=== PATIENT | female | born 1950 | race Caucasian/White ===

== ENCOUNTER → 2016-06-07 | Outpatient (CLI) | payer MEDICARE | LOC: WI 09:58 | PROVIDERS: ATTEND Family Medicine | DX: Z78.0 Asymptomatic menopausal state (principal); M85.88 Other specified disorders of bone density and structure, other site | CPT/HCPCS: 77080 ==

== ENCOUNTER → 2016-08-15 | Outpatient (CLI) | payer MEDICARE ==
--- NOTE | 2016-08-16 12:51 | RADIOLOGY REPORT (SQ) ---
EXAM DESCRIPTION: MRI LT LOWER JOINT WITHOUT COMPLETED DATE/TIME: 08/15/2016 10:02 pm REASON FOR STUDY: PAIN IN LEFT KNEE M25.562 PAIN IN LEFT KNEE COMPARISON: None. TECHNIQUE: Leftknee images acquired and stored on PACS. Multiplanar images include fat sensitive se quences as T1, water sensitive sequences as FST2 or STIR, cartilage sensitive sequences as FSPD, and gradient echo sequences. LIMITATIONS: None. FINDINGS: JOINT AND BURSAE: Small joint effusion. No popliteal cyst. BONE CORTEX AND MARROW: No alteration of signal to suggest marrow replacement. No worrisome bone lesi ons. No occult fracture. ACL: Intact. No degeneration or ganglion cyst. PCL: Intact. MCL: Intact. No periligamentous edema or fluid. LCL: Periligamentous edema. There is partial tear at the insertion of the popliteus tendon along the lateral femoral condyle. MEDIAL MENISCUS: No tears. No abnormal signal. LATERAL MENISCUS: No tears. No abnormal signal. MEDIAL COMPARTMENT: Cartilage preserved. No bone bruises or reactive marrow edema. No osteophytes. LATERAL COMPARTMENT: Cartilage preserved. No bone bruises or reactive marrow edema. No osteophytes. PATELLA: Severe chondromalacia of the patella with extensive subchondral cyst formation of the latera l the set. Extensive loss of trochlear cartilage particularly laterally where there are subchondral cysts and large osteophytes. Retinacular intact. EXTENSOR MECHANISM: Intact. Quadriceps and patella tendons normal. SOFT TISSUES: Adjacent muscles and subcutaneous tissues normal. Normal flow void in popliteal artery and vein. OTHER: No other significant finding. 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 Small joint effusion. 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 TECHNICAL DOCUMENTATION: JOB ID: [id number] [employer]- All Rights Reserved
== END ==
LOC: RAD 20:30
PROVIDERS: ATTEND Orthopaedic Surgery
DX: M25.562 Pain in left knee (principal); M22.42 Chondromalacia patellae, left knee

== ENCOUNTER 2018-07-26 06:36 | Day surgery (SDC) | payer MEDICARE ==
[~2018-07-26 06:36] MED LIST: DORZOLAMIDE HCL 2%/TIMOLOL MALEAT 0.5% OPH SOLN 10 ML OD PRN; KETOROLAC TROMETHAMINE 0.45% 4 DROP/0.4 ML DROPERETTE OD PRN; TETRACAINE HCL 0.5% OPH SOLN 0.6 ML DROPERETTE OD PRN
[2018-07-26] MEDS ORDERED: MIDAZOLAM 2 MG/2 ML INJ ONE (06:44)
[2018-07-26] MEDS ORDERED: FENTANYL CITRATE INJ/PF 100 MCG/2 ML AMPUL ONE (06:44)
[2018-07-26] MEDS: BESIFLOXACIN HCL 0.6% OPH SUSP 5 ML BOTTLE OD PRN ×3 (06:50→07:43)
[2018-07-26] MEDS: TROPICAMIDE 1% OPH SOLN 3 ML OD PRN ×3 (06:50→07:11)
[2018-07-26] MEDS: CYCLOPENTOLATE 0.2%/PHENYLEPHRINE 1% OPH SOLN 2 ML OD PRN ×3 (06:50→07:11)
[2018-07-26] MEDS: TETRACAINE HCL 0.5% OPH SOLN 4 ML OD PRN ×3 (06:51→07:33)
[2018-07-26] MEDS ORDERED: EPINEPHRINE INJ/PF 1 MG/1 ML AMPULE ONE (07:06)
[2018-07-26] MEDS ORDERED: CHONDR SU A NA/HYALUR INTRAOC KIT (SURGICARE) ONE (07:07)
[2018-07-26] MEDS ORDERED: LIDOCAINE 1%/PHENYLEPHRINE 1.5% 1 ML VIAL ONE (07:07)
--- NOTE | 2018-07-26 20:05 | [facility] OPERATIVE REPORT E ---
[facility] Operative Report NAME: CELESTE KIM AGE: 68Y DATE OF SURGERY: 07/26/2018 ROOM: PREOPERATIVE DIAGNOSIS: CATARACT, RIGHT EYE. POSTOPERATIVE DIAGNOSIS: CATARACT, RIGHT EYE. OPERATION: Cataract extraction with insertion of an IOL of the right eye. SURGEON: ANAIS JESUS M.D. ANESTHESIA: Topical. PROCEDURE: After obtaining appropriate consent, the patient's right eye was prepped and draped in sterile fashion as well as the surgeon in a sterile manner and cataract surgery was started. First a paracentesis blade was used to make a side-port incision. Viscoelastic was used to inflate the anterior chamber. Next a 2.4 mm incision was made with a 2.4 mm blade, clear corneal temporally. A continuous capsulorrhexis was made using a cystotome and Utrata forceps. Following this hydrodissection was carried out to make the lens fully loose and mobile and it was rotated 90 degrees. Following this, a lpzfke-bbt-kpkrubz technique was used to phacoemulsify the lens with a CDE of 6.12. The remaining cortex was removed with irrigation/aspiration. Provisc was instilled into the capsular bag to inflate the bag. A SN60WF, 19.5 diopter lens was placed. The remaining viscoelastic material was removed with irrigation/aspiration. Following this, the incision was found to be watertight. Besivance was instilled into the eye and a protective shield was placed over the eye. The patient returned to the postoperative recovery in stable condition. DICTATING PHYSICIAN: ANAIS JESUS M.D. [id number] PHY#: [id number] ID: [id number] JOB#: [id number] ACCT: [id number] cc:ANAIS JESUS M.D. >
--- NOTE | 2018-07-26 20:05 | [facility] DISCHARGE SUMMARY E ---
[facility] Discharge Summary NAME: CELESTE KIM AGE: 68Y ADMITTED: 07/26/2018 DISCHARGED: 07/26/2018 HOSPITAL COURSE: This is a 68-year-old patient who underwent cataract extraction of the right eye. DIAGNOSIS: CATARACT, RIGHT EYE. The patient underwent surgery because she was having difficulty seeing words on the television. DISCHARGE INSTRUCTIONS: She should be on a regular diet. No bending at her waist, no heavy lifting. She should use her Besivance, Prolensa, and Durezol at 3 p.m. and 8 p.m. and sleep with a rigid shield. I will see her for her 1 day postoperative tomorrow. DICTATING PHYSICIAN: ANAIS JESUS M.D. [id number] PHY#: [id number] ID: [id number] JOB#: [id number] ACCT: [id number] cc:ANAIS JESUS M.D. >
== END 2018-07-26 08:27 | disposition home or self-care (01) ==
LOC: SC 06:36
PROVIDERS: ATTEND Internal Medicine
DX: H25.11 Age-related nuclear cataract, right eye (principal); M06.9 Rheumatoid arthritis, unspecified; J45.909 Unspecified asthma, uncomplicated; G47.33 Obstructive sleep apnea (adult) (pediatric); E66.01 Morbid (severe) obesity due to excess calories; Z68.41 Body mass index [BMI] 40.0-44.9, adult
CPT/HCPCS: 66984; V2632; J2250; J3490 ×2; A9270; J0171; J3010; J2370

== ENCOUNTER 2018-08-23 06:53 | Day surgery (SDC) | payer MEDICARE ==
[~2018-08-23 06:53] MED LIST changes: -DORZOLAMIDE HCL 2%/TIMOLOL MALEAT 0.5% OPH SOLN 10 ML OD PRN; -KETOROLAC TROMETHAMINE 0.45% 4 DROP/0.4 ML DROPERETTE OD PRN; +KETOROLAC TROMETHAMINE 0.45% 4 DROP/0.4 ML DROPERETTE OS PRN; -TETRACAINE HCL 0.5% OPH SOLN 0.6 ML DROPERETTE OD PRN; +TETRACAINE HCL 0.5% OPH SOLN 0.6 ML DROPERETTE OS PRN
[2018-08-23] MEDS ORDERED: LIDOCAINE 1%/PHENYLEPHRINE 1.5% 1 ML VIAL ONE (07:29)
[2018-08-23] MEDS ORDERED: EPINEPHRINE INJ/PF 1 MG/1 ML AMPULE ONE (07:29)
[2018-08-23] MEDS ORDERED: CHONDR SU A NA/HYALUR INTRAOC KIT (SURGICARE) ONE (07:29)
[2018-08-23] MEDS ORDERED: MIDAZOLAM 2 MG/2 ML INJ ONE (08:39)
[2018-08-23] MEDS: BESIFLOXACIN HCL 0.6% OPH SUSP 5 ML BOTTLE OS PRN ×4 (08:47→09:42)
[2018-08-23] MEDS: TETRACAINE HCL 0.5% OPH SOLN 4 ML OS PRN ×2 (08:47→09:10)
[2018-08-23] MEDS: CYCLOPENTOLATE 0.2%/PHENYLEPHRINE 1% OPH SOLN 2 ML OS PRN ×3 (08:47→09:10)
[2018-08-23] MEDS: TROPICAMIDE 1% OPH SOLN 3 ML OS PRN ×3 (08:47→09:10)
[2018-08-23] MEDS: DORZOLAMIDE HCL 2%/TIMOLOL MALEAT 0.5% OPH SOLN 10 ML OS PRN ×2 (09:42)
--- NOTE | 2018-08-23 17:34 | [facility] OPERATIVE REPORT E ---
[facility] Operative Report NAME: CELESTE KIM AGE: 68Y DATE OF SURGERY: 08/23/2018 ROOM: PREOPERATIVE DIAGNOSIS: CATARACT, LEFT EYE. POSTOPERATIVE DIAGNOSIS: CATARACT, LEFT EYE. OPERATION: Cataract extraction with insertion of an IOL of the left eye. SURGEON: ANAIS JESUS M.D. ANESTHESIA: Topical. PROCEDURE: After obtaining appropriate consent, the patient's left eye was prepped and draped in sterile fashion as well as the surgeon in a sterile manner and cataract surgery was started. First a paracentesis blade was used to make a side-port incision. Viscoelastic was used to inflate the anterior chamber. Next a 2.4 mm incision was made with a 2.4 mm blade, clear corneal temporally. A continuous capsulorrhexis was made using a cystotome and Utrata forceps. Following this hydrodissection was carried out to make the lens fully loose and mobile and it was rotated 90 degrees. Following this, a zzlijx-yhq-ilzyxhk technique was used to phacoemulsify the lens with a CDE of 4.59. The remaining cortex was removed with irrigation/aspiration. Provisc was instilled into the capsular bag to inflate the bag. A SN60WF, 20.0 diopter lens was placed. The remaining viscoelastic material was removed with irrigation/aspiration. Following this, the incision was found to be watertight. Besivance was instilled into the eye and a protective shield was placed over the eye. The patient returned to the postoperative recovery in stable condition. DICTATING PHYSICIAN: ANAIS JESUS M.D. [id number] PHY#: [id number] ID: [id number] JOB#: [id number] ACCT: [id number] cc:ANAIS JESUS M.D. >
--- NOTE | 2018-08-23 17:34 | [facility] DISCHARGE SUMMARY E ---
[facility] Discharge Summary NAME: CELESTE KIM AGE: 68Y ADMITTED: 08/23/2018 DISCHARGED: This is a 68-year-old female who underwent cataract extraction of the left eye. DIAGNOSIS: Cataract left eye. She underwent surgery because she was having difficulty seeing words on the television. She should be on a regular diet. No bending at the waist and no heavy lifting. She should use her Besivance, Ilevro, and Durezol at 3:00 p.m. and 8:00 p.m. and sleep with a rigid shield. I will see her for her 1-day postop tomorrow. DICTATING PHYSICIAN: ANAIS JESUS M.D. [id number] [id number] PHY#: [id number] ID: [id number] JOB#: [id number] ACCT: [id number] cc:ANAIS JESUS M.D. >
== END 2018-08-23 10:00 | disposition home or self-care (01) ==
LOC: SC 06:53
PROVIDERS: ATTEND Internal Medicine
PROC: 08RK3JZ Replacement of Left Lens with Synthetic Substitute, Percutaneous Approach (ICD-10-PCS; principal; 2018-08-23 09:15)
DX: H25.11 Age-related nuclear cataract, right eye (principal); J45.909 Unspecified asthma, uncomplicated; M19.90 Unspecified osteoarthritis, unspecified site; Z88.0 Allergy status to penicillin; Z79.899 Other long term (current) drug therapy
CPT/HCPCS: 00142; 66984; V2632; J2250; J3490 ×2; A9270; J0171; J2370; 142

== ENCOUNTER 2018-11-08 10:01 | Emergency (ER) | payer MEDICARE ==
[2018-11-08] MEDS ORDERED: NORMAL SALINE 1000 ML 1,000 ML IV ONE (11:08)
[2018-11-08] MEDS ORDERED: ONDANSETRON HCL INJ/PF 4 MG/2 ML SDV IV ONE ×2 (11:09→12:27)
--- NOTE | 2018-11-08 11:11 | ER Document Report ---
ED Medical Screen (RME) - General Chief Complaint: Abdominal Pain Stated Complaint: DIARRHEA Time Seen by Provider: 11/08/18 11:05 Primary Care Provider: KYLEE ELLIS DO [Primary Care Provider] - Follow up as needed Mode of Arrival: Ambulatory Information source: Patient Notes: 68-year-old female presented to ED for complaint of a headache that started Monday. She states she had a headache and was very sleepy Monday she had a headache and was very sleepy and started becoming nauseated. Monday she had a headache sleepy nausea and vomiting was still no appetite. And yesterday she had sleeping headache nausea vomiting and more severe diarrhea. She states she does not eat much of anything except for Gatorade since Monday. She states she feels very dehydrated at this time. She states she is been taken Imodium for her diarrhea and is not getting better. Patient is alert oriented respirations regular and unlabored answering all questions appropriately I have greeted and performed a rapid initial assessment of this patient. A comprehensive ED assessment and evaluation of the patient, analysis of test results and completion of medical decision making process will be conducted by an additional ED providers. TRAVEL OUTSIDE OF THE [place] IN LAST 30 DAYS: No - Related Data Allergies/Adverse Reactions: No Known Allergies Allergy (Verified 11/08/18 10:04) Past Medical History - Social History Frequency of alcohol use: None Drug Abuse: None - Past Medical History Cardiac Medical History: Denies: Hx Heart Attack, Hx Hypertension Pulmonary Medical History: Reports: Hx Asthma Neurological Medical History: Denies: Hx Cerebrovascular Accident, Hx Seizures Renal/ Medical History: Denies: Hx Peritoneal Dialysis GI Medical History: Denies: Hx Hepatitis, Hx Hiatal Hernia, Hx Ulcer Infectious Medical History: Denies: Hx Hepatitis Past Surgical History: Reports: Hx Cholecystectomy, Hx Orthopedic Surgery - R knee, L leg. Denies: Hx Mastectomy, Hx Open Heart Surgery, Hx Pacemaker Physical Exam - Vital signs Vitals: Temp Pulse Resp BP Pulse Ox 98.2 F 82 18 146/75 H 93 11/08/18 10:06 11/08/18 10:06 11/08/18 10:11/08/18 10:11/08/18 10:06 Course - Vital Signs Vital signs: Temp Pulse Resp BP Pulse Ox 98.2 F 82 18 146/75 H 93 11/08/18 10:06 11/08/18 10:06 11/08/18 10:06 11/08/18 10:06 11/08/18 10:06 Doctor's Discharge - Discharge Referrals: KYLEE ELLIS, [Primary Care Provider] - Follow up as needed
[2018-11-08 11:51] LABS: ABSOLUTE EOSINOPHILS # (AUTO) 0.1 10^3/uL (0.0-0.6); ABSOLUTE LYMPHOCYTES (AUTO) 1.4 10^3/uL (0.5-4.7); ABSOLUTE MONOCYTES (AUTO) 0.5 10^3/uL (0.1-1.4); ABSOLUTE NEUT (AUTO) 4.1 10^3/uL (1.7-8.2); BASOPHILS % (AUTO) 0.4 % (0-2); HEMATOCRIT 40.6 % (36.0-47.0); HEMOGLOBIN 13.2 g/dL (12.0-15.5); MEAN CORPUSCULAR HEMOGLOBIN 27.7 pg (27.0-33.4); MEAN CORPUSCULAR HGB CONC 32.5 g/dL (32.0-36.0); MEAN CORPUSCULAR VOLUME 85 fl (80-97); PLATELET COUNT 230 10^3/uL (150-450); RED BLOOD COUNT 4.77 10^6/uL (3.72-5.28); RED CELL DISTRIBUTION WIDTH 13.5 % (11.5-14.0); SEGMENTED NEUTROPHILS % (AUTO) 67.6 % (42-78); TOTAL CELLS COUNTED % (AUTO) 100 %
[2018-11-08 12:21] LABS: ALBUMIN 3.9 g/dL (3.5-5.0); ALKALINE PHOSPHATASE 74 U/L (38-126); ANION GAP 9 (5-19); ASPARTATE AMINO TRANSFERASE 38 U/L (14-36); BILIRUBIN,DIRECT 0.4 mg/dL (0.0-0.4); BILIRUBIN,TOTAL 0.8 mg/dL (0.2-1.3); BLOOD UREA NITROGEN 15 mg/dL (7-20); CALCIUM 9.4 mg/dL (8.4-10.2); CARBON DIOXIDE 27 mmol/L (22-30); CHLORIDE 102 mmol/L (98-107); GLUCOSE 99 mg/dL (75-110); POTASSIUM 3.6 mmol/L (3.6-5.0); TOTAL PROTEIN 6.8 g/dL (6.3-8.2)
[2018-11-08] MEDS ORDERED: ACETAMINOPHEN 325 MG TABLET PO ONE (12:27)
--- NOTE | 2018-11-08 12:58 | RADIOLOGY REPORT (SQ) ---
EXAM DESCRIPTION: CHEST 2 VIEWS COMPLETED DATE/TIME: 11/08/2018 12:48 pm REASON FOR STUDY: cough COMPARISON: None. EXAM PARAMETERS: NUMBER OF VIEWS: two views TECHNIQUE: Digital Frontal and Lateral radiographic views of the chest acquired. RADIATION DOSE: NA LIMITATIONS: none FINDINGS: LUNGS AND PLEURA: No opacities, masses or pneumothorax. No pleural effusion. MEDIASTINUM AND HILAR STRUCTURES: No masses or contour abnormalities. HEART AND VASCULAR STRUCTURES: Heart normal size. No evidence for failure. BONES: No acute findings. HARDWARE: None in the chest. OTHER: No other significant finding. IMPRESSION: NO ACUTE RADIOGRAPHIC FINDING IN THE CHEST. TECHNICAL DOCUMENTATION: JOB ID: [id number] [employer]- All Rights Reserved Reading location - IP/workstation name: [email or web address]
[2018-11-08 13:35] LABS: APPEARANCE,URINE SLIGHTLY-CLOUDY; BILIRUBIN,URINE NEGATIVE (NEGATIVE); COLOR,URINE YELLOW; GLUCOSE, URINE NEGATIVE (NEGATIVE); KETONES,URINE TRACE mg/dL (NEGATIVE); LEUKOCYTE ESTERASE,URINE NEGATIVE (NEGATIVE); NITRITE,URINE NEGATIVE (NEGATIVE); PROTEIN,URINE NEGATIVE (NEGATIVE); URINE SPECIFIC GRAVITY 1.014; UROBILINOGEN,URINE NEGATIVE mg/dL (<2.0)
--- NOTE | 2018-11-08 13:53 | RADIOLOGY REPORT (SQ) ---
EXAM DESCRIPTION: CT ABD/PELVIS NO ORAL OR IV COMPLETED DATE/TIME: 11/08/2018 1:36 pm REASON FOR STUDY: abd pain COMPARISON: 01/10/2017 TECHNIQUE: CT scan of the abdomen and pelvis performed without intravenous or oral contrast. Images reviewed with lung, soft tissue, and bone windows. Reconstructed coronal and sagittal MPR images revi ewed. All images stored on PACS. All CT scanners at this facility use dose modulation, iterative reconstruction, and/or weight based d osing when appropriate to reduce radiation dose to as low as reasonably achievable (ALARA). [facility]: Dose Right [facility]: CareDose [facility]: Dose Right [facility]: Teradose 4D [facility]: [employer] RADIATION DOSE: CT Rad equipment meets quality standard of care and radiation dose reduction techniq ues were employed. CTDIvol: 20.4 mGy. DLP: 1113 mGy-cm.mGy. LIMITATIONS: None. FINDINGS: LOWER CHEST: No significant findings. No nodules or infiltrates. NON-CONTRASTED LIVER, SPLEEN, ADRENALS: Evaluation limited by lack of IV contrast. No identified sign ificant masses. PANCREAS: No masses. No peripancreatic inflammatory changes. GALLBLADDER: Surgically absent. RIGHT KIDNEY AND URETER: No suspicious masses. Assessment limited by lack of IV contrast. No signif icant calcifications. No hydronephrosis or hydroureter. LEFT KIDNEY AND URETER: No suspicious masses. Assessment limited by lack of IV contrast. No signifi cant calcifications. No hydronephrosis or hydroureter. AORTA AND RETROPERITONEUM: No aneurysm. No retroperitoneal masses or adenopathy. BOWEL AND PERITONEAL CAVITY: No obvious masses or inflammatory changes. No free fluid. APPENDIX: Not identified. No significant pericecal inflammation is appreciated. PELVIS, BLADDER, AND ABDOMINAL WALL:No abnormal masses. No free fluid. Bladder normal. BONES: No significant findings. OTHER: No other significant finding. IMPRESSION: No significant or acute finding is seen in the abdomen or pelvis. The appendix is not i dentified, but no significant pericecal inflammatory changes are seen. COMMENT: Quality ID # [id number]: Final reports with documentation of one or more dose reduction techniques (e.g., Automated exposure control, adjustment of the mA and/or kV according to patient size, use of iterative reconstruction technique) TECHNICAL DOCUMENTATION: JOB ID: [id number]- All Rights Reserved Reading location - IP/workstation name: [email or web address]
[2018-11-08] MEDS ORDERED: METRONIDAZOLE 500 MG TABLET PO ONE (14:39)
[2018-11-08] MEDS ORDERED: PROCHLORPERAZINE EDISYLATE INJ 10 MG/2 ML VIAL IV ONE (14:49)
[2018-11-08] MEDS ORDERED: DIPHENHYDRAMINE HCL 50 MG/ML VIAL IV ONE (14:50)
--- NOTE | 2018-11-08 16:17 | ER Document Report ---
Entered by MIKO JENNINGS SCRIBE 11/08/18 1229 Acting as scribe for:DARCY WIN DO ED GI/ - General Chief Complaint: Abdominal Pain Stated Complaint: DIARRHEA Time Seen by Provider: 11/08/18 11:05 Primary Care Provider: KYLEE ELLIS DO [ACTIVE STAFF] - Follow up in 3-5 days Mode of Arrival: Ambulatory Information source: Patient Notes: Patient is a 68 year old female that presents to the emergency department today with complaints of a headache for the last x4 days with associated diarrhea. Patient was given a x10 day course of Cipro for an upper respiratory infection recently. Patient states after taking x5 days worth of the antibiotics she began developing this diarrhea. Patient states she has used ibuprofen with no relief of her headache. Patient has slight abdominal pain as well. Patient denies dysuria. TRAVEL OUTSIDE OF THE [place] IN LAST 30 DAYS: No - Related Data Allergies/Adverse Reactions: No Known Allergies Allergy (Verified 11/08/18 10:04) Past Medical History - General Information source: Patient - Social History Smoking Status: Never Smoker Cigarette use (# per day): No Frequency of alcohol use: None Drug Abuse: None Lives with: Family Family History: Reviewed & Not Pertinent Patient has suicidal ideation: No Patient has homicidal ideation: No Pulmonary Medical History: Reports: Hx Asthma Past Surgical History: Reports: Hx Cholecystectomy, Hx Orthopedic Surgery - R knee, L leg Review of Systems - Review of Systems Constitutional: No symptoms reported EENT: No symptoms reported Cardiovascular: No symptoms reported Respiratory: No symptoms reported Gastrointestinal: See HPI, Abdominal pain, Diarrhea Genitourinary: denies: Dysuria Female Genitourinary: No symptoms reported Musculoskeletal: No symptoms reported Skin: No symptoms reported Hematologic/Lymphatic: No symptoms reported Neurological/Psychological: See HPI, Headaches -: Yes All other systems reviewed and negative Physical Exam - Vital signs Vitals: Temp Pulse Resp BP Pulse Ox 98.2 F 82 18 146/75 H 93 11/08/18 10:06 11/08/18 10:06 11/08/18 10:06 11/08/18 10:06 11/08/18 10:06 Interpretation: Normal - General General appearance: Appears well, Alert - HEENT Head: Normocephalic, Atraumatic Eyes: Normal Pupils: PERRL Mucous membranes: Dry - Respiratory Respiratory status: No respiratory distress Chest status: Nontender Breath sounds: Normal Chest palpation: Normal - Cardiovascular Rhythm: Regular Heart sounds: Normal auscultation Murmur: No - Abdominal Inspection: Normal Bowel sounds: Hyperactive Tenderness: Tender - Mild diffuse Organomegaly: No organomegaly - Back Back: Normal, Nontender - Extremities General upper extremity: Normal inspection, Nontender, Normal color, Normal ROM, Normal temperature General lower extremity: Normal inspection, Nontender, Normal color, Normal ROM, Normal temperature, Normal weight bearing. No: Alisa's sign - Neurological Neuro grossly intact: Yes Cognition: Normal Orientation: AAOx4 [place] Coma Scale Eye Opening: Spontaneous Bear Coma Scale Verbal: Oriented [place] Coma Scale Motor: Obeys Commands [place] Coma Scale Total: 15 Speech: Normal Motor strength normal: LUE, RUE, LLE, RLE Sensory: Normal - Psychological Associated symptoms: Normal affect, Normal mood - Skin Skin Temperature: Warm Skin Moisture: Dry Skin Color: Normal Course - Re-evaluation Re-evalutation: 11/08/18 16:03 Patient is a 68-year-old female who comes in with diarrhea. Patient had some cramping with that is since resolved. Patient was taking Cipro at home for an upper respiratory infection and developed diarrhea 5 days into taking it. She is C. difficile positive. Patient will have Flagyl initiated. She does not want to stay in the hospital. Feels better. Taking p.o. Wants to go home. She is to follow-up with her doctor as soon as possible and return to the emergency department with any worsening or concerning symptoms. Patient is a nurse. States that she knows what signs to look for and she will return if necessary. Stable at this time for discharge. - Vital Signs Vital signs: Temp Pulse Resp BP Pulse Ox 98.6 F 68 15 113/53 L 91 L 11/08/18 14:36 11/08/18 14:36 11/08/18 14:36 11/08/18 14:36 11/08/18 14:36 - Laboratory Result Diagrams: 11/08/18 11:39 11/08/18 11:39 Laboratory results interpreted by me: 11/08/18 11/08/18 11:39 13:12 AST 38 H Urine Ketones TRACE H Discharge - Discharge Clinical Impression: C. difficile colitis, Dehydration Condition: Stable Disposition: HOME, SELF-CARE Instructions: C. (Clostridium) Difficile Infection ([facility]) Prescriptions: Metronidazole [Flagyl 500 mg Tablet] 500 mg PO TID #9 tablet Metronidazole [Flagyl 500 mg Tablet] 500 mg PO TID #21 tablet Referrals: KYLEE ELLIS DO [ACTIVE STAFF] - Follow up in 3-5 days I personally performed the services described in the documentation, reviewed and edited the documentation which was dictated to the scribe in my presence, and it accurately records my words and actions.
[2018-11-08 16:50] VITALS: BP 120/76
== END 2018-11-08 16:52 | disposition home or self-care (01) ==
LOC: ER 10:01
DX: A04.72 Enterocolitis due to Clostridium difficile, not specified as recurrent (principal); E86.0 Dehydration; R10.9 Unspecified abdominal pain; R19.7 Diarrhea, unspecified; R51 Headache; Z79.899 Other long term (current) drug therapy; J45.909 Unspecified asthma, uncomplicated
CPT/HCPCS: 96376; 99284; 96361; 96374; 96375; 36415; 87045; 87205; 83690; 85025; 80053; 81001; 87493; 71046; 74176; A9270 ×2; J1200; J0780; J2405; J7030

== ENCOUNTER 2018-12-28 19:59 | Emergency (ER) | payer MEDICARE ==
[2018-12-28] MEDS ORDERED: HYDROMORPHONE HCL INJ/PF 2 MG/ML AMPULE IV ONE ×2 (20:02→20:54)
--- NOTE | 2018-12-28 20:05 | ER Document Report ---
ED General - General Stated Complaint: LEFT SHOULDER PAIN Time Seen by Provider: 12/28/18 20:02 Primary Care Provider: DARRIUS CAMPBELL NP [Primary Care Provider] - Follow up as needed BRANDEE AVENDANO MD [ACTIVE STAFF] - Follow up in 1 week Notes: [id number]-[id number] female presents with left shoulder and elbow pain after a fall onto her left upper extremity. This occurred about half an hour ago. Patient's having severe pain worse with movement along with swelling and bruising of the elbow and shoulder. She panel from EMS. No head strike LOC blood thinners neck pain chest pain belly pain or back pain. She says the only other thing that hurts is "my pride." TRAVEL OUTSIDE OF THE [place] IN LAST 30 DAYS: No - Related Data Allergies/Adverse Reactions: No Known Allergies Allergy (Verified 11/08/18 10:04) Past Medical History - Social History Smoking Status: Unknown if Ever Smoked Family History: Reviewed & Not Pertinent - Past Medical History Cardiac Medical History: Denies: Hx Heart Attack, Hx Hypertension Pulmonary Medical History: Reports: Hx Asthma Neurological Medical History: Denies: Hx Cerebrovascular Accident, Hx Seizures Renal/ Medical History: Denies: Hx Peritoneal Dialysis GI Medical History: Denies: Hx Hepatitis, Hx Hiatal Hernia, Hx Ulcer Infectious Medical History: Denies: Hx Hepatitis Past Surgical History: Reports: Hx Cholecystectomy, Hx Orthopedic Surgery - R knee, L leg. Denies: Hx Mastectomy, Hx Open Heart Surgery, Hx Pacemaker Review of Systems - Review of Systems Notes: 9 REVIEW OF SYSTEMS GEN: Denies fever, chills, weight loss ENT: Denies sore throat, nasal discharge, ear pain EYES: Denies blurry vision, eye pain, discharge CV: Denies chest pain, palpitations, edema RESP: Denies cough, shortness of breath, wheezing GI: Denies abdominal pain, nausea, vomiting, diarrhea MSK: SKIN: Denies rash, skin lesions LYMPH: Denies swollen glands/lymph nodes NEURO: Denies headache, focal weakness or numbness, dizziness PSYCH: Denies depression, suicidal or homicidal ideation PHYSICAL EXAMINATION General: No acute distress, well-nourished Head: Atraumatic, normocephalic ENT: Mouth normal, oropharynx moist, no exudates or tonsillar enlargement Eyes: Conjunctiva normal, pupils equal, lids normal Neck: No JVD, supple, no guarding CVS: Normal rate, regular rhythm, no murmurs Resp: No resp distress, equal and normal breath sounds bilaterally GI: Nondistended, soft, no tenderness to palpation, no rebound or guarding Ext: Immobile left upper extremity with tenderness in the shoulder without deformity, soft compartments and bruising and tenderness her left elbow. Pulses good. Ring removed from left ring finger. No other tenderness or injury identified. Back: No CVA or midline TTP Skin: No rash, warm Lymphatic: No lymphadeopathy noted Neuro: Awake, alert. Face symmetric. GCS 15. See HPI Physical Exam - Vital signs Vitals: Temp Pulse Resp BP Pulse Ox 98.1 F 82 16 151/85 H 95 12/28/18 20:03 12/28/18 20:03 12/28/18 20:03 12/28/18 20:03 12/28/18 20:03 Course - Re-evaluation Re-evalutation: 12/28/18 20:44 Likely left upper semi-trauma with bruise on elbow and shoulder pain. Dislocation versus fracture versus both. Films were done of the humerus, and the elbow. Elbow films negative. Proximal humerus fracture noted without significant dislocation. Given 2 rounds of pain medicine placed in a sling. Reassessed at 8:40 PM. Pain is slightly better, she is no other pain popping up and normal exam elsewhere. 12/28/18 22:57 Require repeat pain medicine dosing. Reexamination yielded soft compartments and good pulses again. Placed in sling. Given prescription for pain medication and discharged. I have discussed with the patient there likely diagnosis, aftercare plan, follow-up plans and my usual and customary return precautions. They verbalized understanding of this. - Vital Signs Vital signs: Temp Pulse Resp BP Pulse Ox 98.1 F 82 16 151/85 H 95 12/28/18 20:03 12/28/18 20:03 12/28/18 20:03 12/28/18 20:03 12/28/18 20:03 - Diagnostic Test Radiology reviewed: Image reviewed, Reports reviewed Discharge - Discharge Clinical Impression: Fracture of humerus, proximal, closed Qualifiers: Encounter type: initial encounter Fracture morphology: other fracture Fracture alignment: displaced Laterality: left Qualified Code(s): S42.292A - Other displaced fracture of upper end of left humerus, initial encounter for closed fracture Condition: Good Disposition: HOME, SELF-CARE Instructions: Fracture Proximal Humerus Additional Instructions: You have a broken shoulder which will likely not require surgery which requires aggressive follow-up with orthopedics within 5 days. Please keep your sling on when moving but take it off twice a day to do much range of motion exercises. Ice and elevate. Pain medicine as needed. Return to ER for worsening pain other pain numbness tingling or any other concerns. Prescriptions: Hydrocodone/Acetaminophen [[place] 5-325 mg Tablet] 1 tab PO Q4HP PRN #14 tablet PRN Reason: Referrals: DARRIUS CAMPBELL NP [Primary Care Provider] - Follow up as needed BRANDEE AVENDANO MD [ACTIVE STAFF] - Follow up in 1 week Print Language: Stateless
--- NOTE | 2018-12-28 21:07 | RADIOLOGY REPORT (SQ) ---
EXAM DESCRIPTION: XR SHOULDER 2 OR MORE VIEWS COMPLETED DATE/TME: 12/28/2018 20:01 CLINICAL HISTORY: 68 years, Female, bone tenderness COMPARISON: None. NUMBER OF VIEWS: Three TECHNIQUE: Three views were obtained. LIMITATIONS: None. FINDINGS: Visualized is a highly comminuted fracture involving the proximal humerus, extending to the surgical neck and likely emanating into the greater and lesser tuberosities. No additional osseous anomalies are appreciated. IMPRESSION: Comminuted proximal humeral fracture. copyright 2010 [employer]- All Rights Reserved
--- NOTE | 2018-12-28 21:10 | RADIOLOGY REPORT (SQ) ---
EXAM DESCRIPTION: XR ELBOW 1-2 VIEWS COMPLETED DATE/TME: 12/28/2018 20:02 CLINICAL HISTORY: 68 years, Female, fall inj COMPARISON: None. NUMBER OF VIEWS: Three TECHNIQUE: Frontal, oblique, and lateral radiographs were obtained LIMITATIONS: None. FINDINGS: Visualized osseous structures are normal in appearance. Joint spaces are well-maintained. No acute fracture or dislocation is clearly identified. However, soft tissue swelling is noted about the posterior aspect of the distal upper arm extending into the elbow. IMPRESSION: Posterior soft tissue swelling without underlying acute osseous anomaly. copyright 2010 [employer]- All Rights Reserved
[2018-12-28] MEDS ORDERED: OXYCODONE-ACETAMINOPHEN 5-325 MG TABLET PO ONE (22:36)
[2018-12-28 23:12] VITALS: BP 138/79
== END 2018-12-28 23:12 | disposition home or self-care (01) ==
LOC: ER 19:59
DX: S42.292A Other displaced fracture of upper end of left humerus, initial encounter for closed fracture (principal); S50.02XA Contusion of left elbow, initial encounter; W10.1XXA Fall (on)(from) sidewalk curb, initial encounter; Y93.89 Activity, other specified; M25.512 Pain in left shoulder; J45.909 Unspecified asthma, uncomplicated
CPT/HCPCS: 96376; 99284; 96374; 73070; 73030; A9270; J1170; L3650

== ENCOUNTER → 2019-01-02 | Outpatient (CLI) | payer MEDICARE ==
--- NOTE | 2019-01-02 14:28 | RADIOLOGY REPORT (SQ) ---
EXAM DESCRIPTION: CT LT UPPER EXTREMITY WITHOUT COMPLETED DATE/TIME: 01/02/2019 1:54 pm REASON FOR STUDY: S42.302A UNSP FRACTURE OF SHAFT OF HUMERUS, LEFT ARM, INIT S42.302A UNSP FRACTURE OF SHAFT OF HUMERUS, LEFT ARM, INIT COMPARISON: 12/28/2018 shoulder radiographs. TECHNIQUE: Axial imaging performed through the left humerus with reformatted coronal and sagittal im aging windowed for bone and soft tissues. Images saved to PACS. 3D IMAGING: Were 3D images as MIP, SSD, or volume rendering performed at the work station? Yes. All CT scanners at this facility use dose modulation, iterative reconstruction, and/or weight based d osing when appropriate to reduce radiation dose to as low as reasonably achievable (ALARA). [facility]: Dose Right [facility]: CareDose [facility]: Dose Right [facility]: Teradose 4D [facility]: [employer] LIMITATIONS: None. RADIATION DOSE: CT Rad equipment meets quality standard of care and radiation dose reduction techniq ues were employed. CTDIvol: 30.2 mGy. DLP: 1070 mGy-cm. mGy. FINDINGS: SOFT TISSUES: Limited assessment with CT. Deep soft tissue edema and fluid in the joint. BONES: Extensively comminuted humeral head fracture involves the lateral tuberosity particularly. Sl ight separation of numerous fragments. Mild comminuted fracture through the neck of the humerus with slight impaction. No subluxation or dislocation. AC joint intact. MINERALIZATION: Normal. OTHER: No other significant finding. IMPRESSION: Fracture through the proximal humerus. Involves the humeral head and neck. TECHNICAL DOCUMENTATION: JOB ID: [id number] Quality ID # [id number]: Final reports with documentation of one or more dose reduction techniques (e.g., Au tomated exposure control, adjustment of the mA and/or kV according to patient size, use of iterative reconstruction technique) 2010 [employer]- All Rights Reserved Reading location - IP/workstation name: [email or web address]
== END ==
LOC: RAD 12:39
PROVIDERS: ATTEND Orthopaedic Surgery
DX: S42.302A Unspecified fracture of shaft of humerus, left arm, initial encounter for closed fracture (principal); X58.XXXA Exposure to other specified factors, initial encounter; Y93.9 Activity, unspecified; Y92.9 Unspecified place or not applicable

== ENCOUNTER 2019-01-04 09:45 | Inpatient (IN) | payer MEDICARE ==
[~2019-01-04 09:45] MED LIST changes: +CEFAZOLIN SODIUM 2 GM in DEXTROSE 5%-WATER 100 ML IV PRN; +GLYCOPYRROLATE 1 MG/5 ML VIAL ONE; -KETOROLAC TROMETHAMINE 0.45% 4 DROP/0.4 ML DROPERETTE OS PRN; +PHENYLEPHRINE HCL INJ/PF 10 MG/1 ML SDV ONE; +SUCCINYLCHOLINE CHLORIDE INJ 200 MG/10 ML VIAL ONE; -TETRACAINE HCL 0.5% OPH SOLN 0.6 ML DROPERETTE OS PRN
[2019-01-04] MEDS ORDERED: DEXAMETHASONE SOD PHOSPHATE INJ 4 MG/1 ML VIAL ONE (09:49)
[2019-01-04] MEDS ORDERED: EPHEDRINE SULFATE INJ 50 MG/1 ML AMPULE ONE (09:49)
[2019-01-04] MEDS ORDERED: ONDANSETRON HCL INJ/PF 4 MG/2 ML SDV ONE (09:49)
[2019-01-04] MEDS ORDERED: FENTANYL CITRATE INJ/PF 250 MCG/5 ML AMPULE ONE (09:49)
[2019-01-04] MEDS ORDERED: FENTANYL CITRATE INJ/PF 100 MCG/2 ML AMPUL ONE (09:49)
[2019-01-04] MEDS ORDERED: PROPOFOL INJ 200 MG/20 ML VIAL IV ONE (09:50)
[2019-01-04] MEDS ORDERED: MIDAZOLAM 2 MG/2 ML INJ ONE (09:50)
[2019-01-04 11:04] LABS: ABSOLUTE EOSINOPHILS # (AUTO) 0.2 10^3/uL (0.0-0.6); ABSOLUTE LYMPHOCYTES (AUTO) 1.5 10^3/uL (0.5-4.7); ABSOLUTE MONOCYTES (AUTO) 0.4 10^3/uL (0.1-1.4); ABSOLUTE NEUT (AUTO) 4.9 10^3/uL (1.7-8.2); BASOPHILS % (AUTO) 0.5 % (0-2); HEMATOCRIT 38.8 % (36.0-47.0); HEMOGLOBIN 12.9 g/dL (12.0-15.5); LYMPHOCYTES % (AUTO) 21.4 % (13-45); MEAN CORPUSCULAR HEMOGLOBIN 28.5 pg (27.0-33.4); MEAN CORPUSCULAR HGB CONC 33.3 g/dL (32.0-36.0); MEAN CORPUSCULAR VOLUME 86 fl (80-97); MONOCYTES % (AUTO) 5.3 % (3-13); PLATELET COUNT 273 10^3/uL (150-450); RED BLOOD COUNT 4.53 10^6/uL (3.72-5.28); RED CELL DISTRIBUTION WIDTH 14.2 % (11.5-14.0); SEGMENTED NEUTROPHILS % (AUTO) 69.8 % (42-78); TOTAL CELLS COUNTED % (AUTO) 100 %
[2019-01-04 11:21] LABS: ANION GAP 7 (5-19); BLOOD UREA NITROGEN 18 mg/dL (7-20); CALCIUM 9.5 mg/dL (8.4-10.2); CARBON DIOXIDE 28 mmol/L (22-30); CHLORIDE 104 mmol/L (98-107); GLUCOSE 97 mg/dL (75-110)
--- NOTE | 2019-01-04 11:26 | RADIOLOGY REPORT (SQ) ---
EXAM DESCRIPTION: CHEST SINGLE VIEW COMPLETED DATE/TIME: 01/04/2019 10:35 am REASON FOR STUDY: PREOP COMPARISON: 11/08/2018 EXAM PARAMETERS: NUMBER OF VIEWS: One view. TECHNIQUE: Single frontal radiographic view of the chest acquired. RADIATION DOSE: NA LIMITATIONS: None. FINDINGS: LUNGS AND PLEURA: No opacities, masses or pneumothorax. No pleural effusion. MEDIASTINUM AND HILAR STRUCTURES: No masses. Contour normal. HEART AND VASCULAR STRUCTURES: Heart normal in size. Normal vasculature. BONES: No acute findings. HARDWARE: None in the chest. OTHER: No other significant finding. IMPRESSION: NO ACUTE RADIOGRAPHIC FINDING IN THE CHEST. TECHNICAL DOCUMENTATION: JOB ID: [id number] [employer]- All Rights Reserved Reading location - IP/workstation name: [email or web address]
[2019-01-04] MEDS ORDERED: ALBUTEROL SULFATE 0.083% NEB 2.5 MG/3 ML AMPUL NEB ONE ×2 (11:56→11:58)
[2019-01-04] MEDS ORDERED: TRANEXAMIC ACID INJ/PF 1,000 MG/10 ML SDV ONE (13:15)
[2019-01-04] MEDS ORDERED: PROMETHAZINE HCL INJ 25 MG/1 ML VIAL IV PRN ×2 (13:53)
[2019-01-04] MEDS ORDERED: MORPHINE SULFATE 10 MG/ML INJ IV PRN ×5 (13:53→15:57)
[2019-01-04] MEDS ORDERED: MEPERIDINE HCL/PF INJ 25 MG/1 ML DISP.SYRIN IV PRN (13:53)
[2019-01-04] MEDS ORDERED: DIPHENHYDRAMINE HCL 50 MG/ML VIAL IV PRN ×2 (13:53→15:57)
[2019-01-04] MEDS ORDERED: ONDANSETRON HCL INJ/PF 4 MG/2 ML SDV IV PRN (13:53)
[2019-01-04] MEDS ORDERED: FENTANYL CITRATE INJ/PF 100 MCG/2 ML AMPUL IV PRN ×3 (13:53)
[2019-01-04] MEDS ORDERED: VANCOMYCIN HCL INJ 1000 MG VIAL ONE (14:44)
[2019-01-04] MEDS ORDERED: BACITRACIN INJ 50,000 UNIT VIAL ONE (14:45)
[2019-01-04] MEDS ORDERED: ONDANSETRON 4 MG TAB.RAPDIS PO PRN (15:57)
--- NOTE | 2019-01-04 16:13 | Operative Report ---
Operative Report DATE OF SURGERY: 01/04/19 PREOPERATIVE DIAGNOSIS: Left 4-Part Proximal Humerus Fracture POSTOPERATIVE DIAGNOSIS: Same OPERATION: Left reverse total shoulder arthroplasty SURGEON: MARYBETH JUÁREZ ANESTHESIA: GA COMPLICATIONS: None ESTIMATED BLOOD LOSS: 200cc PROCEDURE: Indication for above procedure: 68-year-old woman who sustained a fall onto her left shoulder. Patient was seen at the emergency room where x-rays demonstrate comminuted four-part proximal humerus fracture. CT scan was done evaluating integrity. At that point decision was made to proceed with operative intervention. Risks and benefits were explained patient verbalized understanding consented for surgical procedure. Procedure In Detail: Patient was seen and evaluated in the preoperative holding area. The upper extremity was initialized and marked. Patient received 2g of Ancef IV for bacterial prophylaxis. Patient was taken back to the operative room where transferred to the operative table and placed under general anesthesia. Once they were adequately anesthetized patient placed in the beachchair position. Cervical spine was placed in neutral position all bony prominences were padded including nonoperative upper extremity and bilateral lower extremity. A surgical team debriefing was performed ensuring all instrumentation was availab le, the surgical procedure was discussed with possible concerns reviewed. The upper extremity was prepped with ChloraPrep draped in a sterile fashion. A timeout was done identifying correct patient, procedure and extremity everyone in attendance agree with this and verbalized no concerns. Patient received tranexamic acid. Longitudinal incision was made deltopectoral approach was utilized. Blunt dissection was performed. Cephalic vein was identified. It was retracted with the deltoid any small tributaries were coagulated with bipolar cautery. Clavicle pectoral fascia was then incised retracting the deltoid laterally. Small arterial branches along the neck of the humerus were coagulated with bipolar cautery. Conjoint tendon was carefully retracted. The proximal humerus was then exposed. Wound was irrigated with normal saline. The humeral head was removed and placed in the back table and cancellus bone graft was harvested from the area for later usage. The lesser and greater tuberosity were tagged at the musculotendinous junction. Humeral shaft was exposed. A opening reamer was placed beginning with a 6 mm reamer by hand up to a 8 mm reamer getting adequate fixation at that level. The glenoid was then exposed interval between the subscapularis and capsule was utilized and capsulectomy was performed to obtain adequate visualization of the glenoid. The glenoid pin was then placed along the central-inferior aspect of the glenoid face opening reamer was utilized. The glenoid surface was then cleaned down to the appropriate level. Central screw was measured and a 20 mm central screw was chosen. This was then fixated to the 2 24 mm modular baseplate. Excellent fixation was obtained. The superior and inferior screws were then drilled past the cortex and 32 mm locking screws placed. Anterior inferior aspect was drilled obtaining measuring length of 60 mm and thus appropriate size 16 m locking screw was placed. 36 mm glenosphere was then impacted in position and locking screw placed. There was excellent fixation of the glenosphere and thus attention turned to completing humeral fixation. I sized 8 humeral stem was then placed with a ruler at the pectoralis insertion was measured 5 mm superiorly to determine appropriate height. Excellent fixation was obtained with the size 8 stem. A 36 mm +9 mm spacer with a +3 humeral insert was then trialed excellent fixation was obtained patient had full forward flexion and abduction with ability to get the hand easily to the back of the head. Excellent stability was achieved through passive range of motion. With the elbow at extension and adduction there is no evidence of subluxation. Decision was made to implant the above trial. Wound was copiously irrigated with normal saline. Sutures were placed into the reverse spacer to allow for later tuberosity repair. Prior to implantation to drill holes were placed into the humerus and horizontal mattress sutures shuttled from medial to lateral to allow for later repair. A size 8 stem 36+9 mm spacer and 36+3 small humeral insert was then implanted. Once again stability and range of motion were confirmed. The lesser and greater tuberosity were then secured to the stem and additional sutures were placed anterior to posterior. Finally the suture through the shaft was placed around the tuberosities obtaining [id number] fixation. Wound was irrigated with saline and Betadine. Vancomycin powder was placed into the wound. Any defect remaining was filled with cancellus bone graft from the humeral head. Deltopectoral interval was closed with interrupted 0 Vicryl suture. Subcutaneous tissues were closed with 2-0 and 3-0 Vicryl suture. Skin was closed with ruben and Acticoat dressing placed. Sponge counts, instrument counts, needle counts were correct. Patient was then awoken from anesthesia. Transferred from the operating room table to the operating room stretcher. There was no intraoperative complications patient tolerated procedure well stable to PACU. Postop plan: Patient follow-up the office in 2 weeks we will obtain radiographs at that time. We will begin formal physical therapy 6 weeks postoperatively. Patient will be started on Xarelto while inpatient and then transition to aspirin at home. IMPLANTS: [employer] universe reverse system with 24 mm baseplate 36+4 glenosphere, size 8 humeral stem 36 neutral cup, 36+9 mm spacer 36+3 humeral insert.
[2019-01-04] MEDS ORDERED: LIDOCAINE 2%/EPINEPHRINE INJ 20 ML VIAL ONE (16:29)
[2019-01-04] MEDS ORDERED: LIDOCAINE 2% INJ (20 MG/ML) 20 ML MDV ONE (16:30)
[2019-01-04] MEDS ORDERED: ROPIVACAINE HCL 0.5% INJ/PF (5 MG/1 ML) 30 ML SDV ONE (16:30)
--- NOTE | 2019-01-04 17:05 | RADIOLOGY REPORT (SQ) ---
EXAM DESCRIPTION: SHOULDER LEFT 2 OR MORE VIEWS COMPLETED DATE/TIME: 01/04/2019 4:49 pm REASON FOR STUDY: post op S42.302A UNSP FRACTURE OF SHAFT OF HUMERUS, LEFT ARM, INIT COMPARISON: None. NUMBER OF VIEWS: Two views. TECHNIQUE: Internal and external rotation images acquired of the left shoulder. LIMITATIONS: None. FINDINGS: MINERALIZATION: Decreased. BONES: Expected postoperative changes from the reverse right shoulder arthroplasty. No evidence of i mmediate complication. Ossific fragment about the proximal humerus, likely related to surgery and pr ior trauma. JOINTS: No acute dislocation. VISUALIZED LUNGS AND RIBS: Minimal basilar atelectasis. SOFT TISSUES: Subcutaneous gas and skin ruben overlie left shoulder. OTHER: No other significant finding. IMPRESSION: Expected postoperative changes from the left reverse shoulder arthroplasty. Residual os sific fragment about the proximal humerus noted. TECHNICAL DOCUMENTATION: JOB ID: [id number] [employer]- All Rights Reserved Reading location - IP/workstation name: [email or web address]
[2019-01-04] MEDS ORDERED: CEFAZOLIN 2 GM/D5W RTU 50 ML IV SCH (18:00)
--- NOTE | 2019-01-04 18:16 | EKG REPORT ---
SEVERITY:- OTHERWISE NORMAL ECG - SINUS RHYTHM LEFT AXIS DEVIATION : Confirmed by: Goran Ellsworth MD 04-Jan-2019 18:15:42
[2019-01-04] MEDS: KETOROLAC TROMETHAMINE INJ/PF 30 MG/1 ML SDV IV SCH (18:45)
[2019-01-04] MEDS: PREGABALIN 75 MG CAPSULE PO SCH (18:45)
[2019-01-04] MEDS ORDERED: ACETAMINOPHEN 1,000 MG/100 ML RTUPB IV ONE (21:57)
[2019-01-04] MEDS: OXYCODONE HCL SR 10 MG TABLET PO SCH (22:04)
[2019-01-04] MEDS: CEFAZOLIN SODIUM 2 GM in DEXTROSE 5%-WATER 100 ML IV SCH (22:04)
[2019-01-05] MEDS: KETOROLAC TROMETHAMINE INJ/PF 30 MG/1 ML SDV IV SCH ×3 (00:37→12:41)
[2019-01-05] MEDS: CEFAZOLIN SODIUM 2 GM in DEXTROSE 5%-WATER 100 ML IV SCH ×2 (04:18→08:37)
[2019-01-05] MEDS: OXYCODONE HCL IR 5 MG TABLET PO PRN ×2 (04:23→15:49)
[2019-01-05] MEDS ORDERED: PANTOPRAZOLE SODIUM 40 MG TABLET.DR PO SCH (06:00)
[2019-01-05 06:31] LABS: ANION GAP 7 (5-19); BLOOD UREA NITROGEN 19 mg/dL (7-20); CALCIUM 9.1 mg/dL (8.4-10.2); CARBON DIOXIDE 28 mmol/L (22-30); CHLORIDE 101 mmol/L (98-107); GLUCOSE 116 mg/dL (75-110); POTASSIUM 4.6 mmol/L (3.6-5.0)
[2019-01-05] MEDS: PREGABALIN 75 MG CAPSULE PO SCH (10:22)
[2019-01-05] MEDS: OXYCODONE HCL SR 10 MG TABLET PO SCH (10:22)
--- NOTE | 2019-01-05 11:20 | PDOC PROGRESS REPORT ---
Subjective Progress Note for:: 01/05/19 Subjective:: Patient lying in bed comfortably. States pain did increase after block wore off. Denies chest pain or shortness of breath. Reason For Visit: S42.302A UNSP FRACTURE OF SHAFT OF HUMERUS, LEFT A Physical Exam Vital Signs: Temp Pulse Resp BP Pulse Ox 98.2 F 76 16 129/65 H 93 01/05/19 07:18 01/05/19 07:18 01/05/19 07:18 01/05/19 07:18 01/05/19 08:24 Pulse Oximeter Continuous Start: 01/04/19 20:00 Freq: RTQ4 Status: Active Protocol: Document 01/05/19 08:24 HCR (Rec: 01/05/19 08:25 HCR [id number]) Pulse Oximetry Assessment Oxygen Saturation (92-100) 93 Oxygen Flow Rate (L/min) 2 Oxygen Delivery Method Nasal Cannula Equipment Usage Equipment in Use Continuous SpO2 Machine # 9 Intake & Output 01/04/19 01/05/19 01/06/19 06:59 06:59 05:59 Intake Total 6707 100 Output Total 4090 Balance 2617 100 Weight 111.3 kg 112.3 kg Extremities exam: PRESENT: other - Left shoulder: Small spot of bloody drainage distally. Remaining of the dressing clean/dry/intact. Mild ecchymosis. Compartments soft and compressible. No sensory deficits. Full elbow wrist and hand range of motion. Results Laboratory Results: 01/04/19 10:45 01/05/19 05:24 01/04/19 01/04/19 01/05/19 10:45 14:50 05:24 Sodium 139.4 136.1 L Potassium 4.0 4.6 Chloride 104 101 Carbon Dioxide 28 28 Anion Gap 7 7 BUN 18 19 Creatinine 0.62 0.65 Est GFR ( Amer) > 60 > 60 Glucose 97 116 H Calcium 9.5 9.1 Blood Type O POSITIVE Antibody Screen NEGATIVE Impressions: Chest X-Ray 01/04/19 00:00 IMPRESSION: NO ACUTE RADIOGRAPHIC FINDING IN THE CHEST. Shoulder X-Ray 01/04/19 00:00 IMPRESSION: Expected postoperative changes from the left reverse shoulder arthroplasty. Residual ossific fragment about the proximal humerus noted. Assessment & Plan - Diagnosis (1) Closed fracture of left proximal humerus Qualifiers: Encounter type: subsequent encounter Fracture alignment: displaced Fracture healing: with routine healing Is this a current diagnosis for this admission?: Yes Plan: Postop day #1 status post left reverse total shoulder arthroplasty 1. Physical therapy/Occupational Therapy for ADLs and ambulation 2. CBC pending 3. Pain control 4. discharge home today if pain controlled and patient's oxygenation improved. Have encouraged ISB. If discharged to home will follow-up with me in 2 weeks. - Time Time Spent with patient: Less than 15 minutes
[2019-01-05 11:55] LABS: HEMATOCRIT 33.4 % (36.0-47.0); MEAN CORPUSCULAR HEMOGLOBIN 28.3 pg (27.0-33.4); MEAN CORPUSCULAR VOLUME 86 fl (80-97); PLATELET COUNT 244 10^3/uL (150-450); RED CELL DISTRIBUTION WIDTH 13.8 % (11.5-14.0)
[2019-01-05 16:13] VITALS: BP 116/51
[2019-01-05] MEDS ORDERED: RIVAROXABAN 10 MG TABLET PO SCH (17:00)
--- NOTE | 2019-01-08 18:21 | PDOC DISCHARGE SUMMARY ---
Impression - Admit/DC Date/PCP Admission Date/Primary Care Provider: DARRIUS CAMPBELL NP Discharge Date: 01/05/19 - Discharge Diagnosis (1) Closed fracture of left proximal humerus Is this a current diagnosis for this admission?: Yes - Assessment Summary: 60-year-old female who sustained a fall onto her left humerus resulting in a 4 part proximal humerus fracture. CT scan and radiographs were obtained confirming fracture and alignment. Given the amount of comminution and displacement we discussed treatment options including operative versus nonoperative intervention after discussing risks and benefits joint decision was made to proceed with operative treatment. On 01/04/2019 patient underwent reverse total shoulder arthroplasty for left proximal humerus fracture. Patient tolerated procedure well. Postoperatively patient received regional block which did provide pain control. On postop day #1 patient was doing well her pain did increase after block but slowly improved. Patient was seen by physical therapy and able to ambulate with minimal assistance. During her hospital course her oxygen was weaned to room air without abnormality. Patient's H&H remained stable at 11/33.4. Patient progressed appropriately throughout her hospital course and on 01/05/2019 patient was orthopedically medically stable for discharge to home. - Additional Information Discharge Diet: As Tolerated Discharge Activity: No Lifting Over 10 Pounds, No Lifting/Push/Pulling Referrals: MARYBETH JUÁREZ DO [ACTIVE STAFF] - Prescriptions: Aspirin [Aspirin 325 mg Tablet] 325 mg PO DAILY PRN #21 PRN Reason: Oxycodone HCl/Acetaminophen [Percocet 7.5-325 mg Tablet] 1 tab PO Q6 PRN #25 tab PRN Reason: Home Medications: Oxybutynin Chloride [Oxybutynin Chloride ER] 30 mg PO DAILY 07/25/18 Sertraline HCl 100 mg PO DAILY 07/25/18 Aspirin [Aspirin 325 mg Tablet] 325 mg PO DAILY PRN #21 01/04/19 Aspirin [Ecotrin 81 mg EC Tablet] 81 mg PO DAILY 01/04/19 Budesonide/Formoterol Fumarate [Symbicort HFA 80-4.5 mcg Inhaler 6.9 gm] 2 inh IH BID 01/04/19 Gabapentin [Neurontin 300 mg Capsule] 600 mg PO QHS 01/04/19 Meloxicam [Mobic] 7.5 mg PO DAILY 01/04/19 Oxycodone HCl/Acetaminophen [Percocet 7.5-325 mg Tablet] 1 tab PO Q6 PRN #25 tab 01/04/19 History of Present Illiness History of Present Illness: CELESTE KIM is a 68 year old female Physical Exam Vital Signs: Temp Pulse Resp BP Pulse Ox 98.0 F 80 16 139/66 H 93 01/05/19 15:53 01/05/19 15:53 01/05/19 15:53 01/05/19 15:53 01/05/19 15:53 Pulse Oximeter Continuous Start: 01/04/19 20:00 Freq: RTQ4 Status: Discharge Protocol: Document 01/05/19 16:19 HCR (Rec: 01/05/19 16:19 HCR [email or web address]) Pulse Oximetry Assessment Equipment Usage Equipment Discontinued Continuous SpO2 Machine # 9 Results Laboratory Results: WBC 8.0 10^3/uL (4.0-10.5) 01/05/19 11:39 RBC 3.90 10^6/uL (3.72-5.28) 01/05/19 11:39 Hgb 11.0 g/dL (12.0-15.5) L 01/05/19 11:39 Hct 33.4 % (36.0-47.0) L 01/05/19 11:39 MCV 86 fl (80-97) 01/05/19 11:39 MCH 28.3 pg (27.0-33.4) 01/05/19 11:39 MCHC 33.0 g/dL (32.0-36.0) 01/05/19 11:39 RDW 13.8 % (11.5-14.0) 01/05/19 11:39 Plt Count 244 10^3/uL (150-450) 01/05/19 11:39 Lymph % (Auto) 21.4 % (13-45) 01/04/19 10:45 [place] % (Auto) 5.3 % (3-13) 01/04/19 10:45 Eos % (Auto) 3.0 % (0-6) 01/04/19 10:45 Baso % (Auto) 0.5 % (0-2) 01/04/19 10:45 Absolute Neuts (auto) 4.9 10^3/uL (1.7-8.2) 01/04/19 10:45 Absolute Lymphs (auto) 1.5 10^3/uL (0.5-4.7) 01/04/19 10:45 Absolute Monos (auto) 0.4 10^3/uL (0.1-1.4) 01/04/19 10:45 Absolute Eos (auto) 0.2 10^3/uL (0.0-0.6) 01/04/19 10:45 Absolute Basos (auto) 0.0 10^3/uL (0.0-0.2) 01/04/19 10:45 Seg Neutrophils % 69.8 % (42-78) 01/04/19 10:45 Sodium 136.1 mmol/L (137-145) L 01/05/19 05:24 Potassium 4.6 mmol/L (3.6-5.0) 01/05/19 05:24 Chloride 101 mmol/L (98-107) 01/05/19 05:24 Carbon Dioxide 28 mmol/L (22-30) 01/05/19 05:24 Anion Gap 7 (5-19) 01/05/19 05:24 BUN 19 mg/dL (7-20) 01/05/19 05:24 Creatinine 0.65 mg/dL (0.52-1.25) 01/05/19 05:24 Est GFR ( Amer) > 60 (>60) 01/05/19 05:24 Est GFR (MDRD) Non-Af > 60 (>60) 01/05/19 05:24 Glucose 116 mg/dL (75-110) H 01/05/19 05:24 Calcium 9.1 mg/dL (8.4-10.2) 01/05/19 05:24 Blood Type O POSITIVE 01/04/19 14:50 Antibody Screen NEGATIVE 01/04/19 14:50 Impressions: Chest X-Ray 01/04/19 00:00 IMPRESSION: NO ACUTE RADIOGRAPHIC FINDING IN THE CHEST. Shoulder X-Ray 01/04/19 00:00 IMPRESSION: Expected postoperative changes from the left reverse shoulder arth roplasty. Residual ossific fragment about the proximal humerus noted. Stroke Is this a Stroke Patient?: No Acute Heart Failure - Is this a Heart Failure Patient?: No
== END 2019-01-05 16:58 | disposition home or self-care (01) | DRG 483 ==
LOC: OROUT 09:46 → EDSTATUS 12:00 → 4S 15:54 → OROUT 18:29 → 4S 01-05 16:38
PROVIDERS: ADMIT Orthopaedic Surgery; ATTEND Orthopaedic Surgery
PROC: 0RRK00Z Replacement of Left Shoulder Joint with Reverse Ball and Socket Synthetic Substitute, Open Approach (ICD-10-PCS; principal; 2019-01-04 12:00)
DX: S42.242A 4-part fracture of surgical neck of left humerus, initial encounter for closed fracture (principal); W10.1XXA Fall (on)(from) sidewalk curb, initial encounter; Y93.89 Activity, other specified; F32.9 Major depressive disorder, single episode, unspecified; F41.9 Anxiety disorder, unspecified; Z90.49 Acquired absence of other specified parts of digestive tract; Z79.82 Long term (current) use of aspirin
CPT/HCPCS: 01638; 36415; 71045; 80048; 85025; 85027; 86850; 86900; 86901; 88305; 88311; 93005; 93010; 94660; 94762; 94799; C1776; J0131; J0330; J0690; J1100; J1885; J2250; J2270; J2370; J2405; J2704; J2795; J3010; J3370; J3490; J7060

== ENCOUNTER → 2019-12-30 | Outpatient (CLI) | payer MEDICARE ==
[2019-12-30 16:25] LABS: ABSOLUTE EOSINOPHILS # (AUTO) 0.2 10^3/uL (0.0-0.6); ABSOLUTE LYMPHOCYTES (AUTO) 1.9 10^3/uL (0.5-4.7); ABSOLUTE MONOCYTES (AUTO) 0.4 10^3/uL (0.1-1.4); ABSOLUTE NEUT (AUTO) 4.8 10^3/uL (1.7-8.2); BASOPHILS % (AUTO) 0.6 % (0-2); EOSINOPHILS % (AUTO) 2.3 % (0-6); HEMOGLOBIN 14.1 g/dL (12.0-15.5); LYMPHOCYTES % (AUTO) 26.3 % (13-45); MEAN CORPUSCULAR HEMOGLOBIN 29.9 pg (27.0-33.4); MEAN CORPUSCULAR HGB CONC 33.6 g/dL (32.0-36.0); MEAN CORPUSCULAR VOLUME 89 fl (80-97); MONOCYTES % (AUTO) 5.6 % (3-13); PLATELET COUNT 260 10^3/uL (150-450); RED BLOOD COUNT 4.71 10^6/uL (3.72-5.28); RED CELL DISTRIBUTION WIDTH 13.1 % (11.5-14.0); SEGMENTED NEUTROPHILS % (AUTO) 65.2 % (42-78); TOTAL CELLS COUNTED % (AUTO) 100 %; WHITE BLOOD COUNT 7.3 10^3/uL (4.0-10.5)
[2019-12-30 17:10] LABS: ERYTHROCYTE SEDIMENTATION RATE 37 mm/hr (0-30)
== END ==
LOC: OD 15:23
PROVIDERS: ATTEND Orthopaedic Surgery
DX: Z96.612 Presence of left artificial shoulder joint (principal)
CPT/HCPCS: 36415; 85025; 85652; 86140

== ENCOUNTER → 2020-01-06 | Outpatient (CLI) | payer MEDICARE ==
--- NOTE | 2020-01-09 10:20 | RADIOLOGY REPORT (SQ) ---
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 The route of agent administration: Intravenous. ADDITIONAL DRUGS AND DOSES: None. TECHNIQUE: Following injection of the radiopharmaceutical, serial blood flow images acquired. Equil ibrium blood pool images then acquired. Routine delayed images at 3 hour acquired of the areas of cl inical concern with additional focused images as needed. AREA OF INTEREST: Left humerus LIMITATIONS: None. FINDINGS: VASCULAR FLOW IMAGES: No asymmetry or focal areas of hyperemia. BLOOD POOL IMAGES: No asymmetry or focal areas of soft-tissue hyper-perfusion. BONES: Increased activity is seen about the distal and of the humeral prosthesis, suggesting loosenin g. KIDNEYS: Not included in the imaged field of view. OTHER: No other significant finding. IMPRESSION: Given total shoulder arthroplasty performed greater than 1 year ago, the appearance of f ocal increased activity about the distal and of the humeral prosthesis in the absence of abnormal frandy w and pool imaging suggests hardware loosening. COMMENT: Quality measure 147: Current bone scan is compared with any available plain radiographs, p rior bone scans, and CT/MRI. TECHNICAL DOCUMENTATION: JOB ID: [id number] 2010 [employer]- All Rights Reserved Reading location - IP/workstation name: [email or web address]
== END ==
LOC: RAD 11:10
PROVIDERS: ATTEND Orthopaedic Surgery
DX: Z47.1 Aftercare following joint replacement surgery (principal); Z96.612 Presence of left artificial shoulder joint
CPT/HCPCS: 78315; A9503; Q9969